=== PATIENT | male | born 1935 | race Caucasian/White ===

== ENCOUNTER → 2016-03-14 | Outpatient (CLI) | payer MEDICARE, BC | LOC: PCVCCLINIC 11:21 | PROVIDERS: ATTEND Internal Medicine Cardiovascular Disease | DX: E78.5 Hyperlipidemia, unspecified (principal); E78.00 Pure hypercholesterolemia, unspecified; I25.10 Atherosclerotic heart disease of native coronary artery without angina pectoris; I71.4 Abdominal aortic aneurysm, without rupture; J44.9 Chronic obstructive pulmonary disease, unspecified; I10 Essential (primary) hypertension; I73.9 Peripheral vascular disease, unspecified; R09.89 Other specified symptoms and signs involving the circulatory and respiratory systems; Z72.0 Tobacco use | CPT/HCPCS: 93005; 93880; G0463 ==

== ENCOUNTER → 2016-09-27 | Outpatient (CLI) | payer MEDICARE, BC | END | disposition home or self-care (01) | LOC: PCVCCLINIC 13:45 | PROVIDERS: ATTEND Internal Medicine Cardiovascular Disease | DX: I25.10 Atherosclerotic heart disease of native coronary artery without angina pectoris (principal); I45.10 Unspecified right bundle-branch block; I51.7 Cardiomegaly; I71.4 Abdominal aortic aneurysm, without rupture; I10 Essential (primary) hypertension; I73.9 Peripheral vascular disease, unspecified; E78.00 Pure hypercholesterolemia, unspecified; J44.9 Chronic obstructive pulmonary disease, unspecified; E78.5 Hyperlipidemia, unspecified; Z72.0 Tobacco use; Z90.49 Acquired absence of other specified parts of digestive tract; Z79.82 Long term (current) use of aspirin | CPT/HCPCS: 80061; 93005; G0463 ==

== ENCOUNTER → 2016-12-03 | Outpatient (CLI) | payer MEDICARE, BC ==
[~2016-12-03] MED LIST: REGADENOSON 0.4 MG/5 ML DISP.SYRIN. IV ONE
--- NOTE | 2016-12-03 10:31 | PCVCIMAG ---
EXAM: AORTOILIAC DUPLEX INDICATION: Abdominal aortic aneurysm. Previous stent graft repair. FINDINGS: AORTA: Suprarenal aorta measures maximum diameter of 3.2 cm. Prior stent graft repair of abdominal aortic aneurysm appears intact without obvious endoleak. Residual aneurysm sac measures maximum diameter of 3.0 x 3.9 cm compared to 3.5 x 3.8 cm on prior study June 2015. No significant aortic stenosis. RIGHT COMMON ILIAC ARTERY: Maximum diameter is 1.5 cm. No significant stenosis. RIGHT EXTERNAL ILIAC ARTERY: No significant stenosis. LEFT COMMON ILIAC ARTERY: Maximum diameter is 1.5 cm. No significant stenosis. LEFT EXTERNAL ILIAC ARTERY: No significant stenosis. IMPRESSION: Intact stent graft repair of abdominal aortic aneurysm by ultrasound criteria. Residual aneurysm sac has remained stable in size since prior study. The suprarenal abdominal aorta measures larger today. Further evaluation with CT angiography of the abdomen and pelvis will be obtained. LOC:[id number]
--- NOTE | 2016-12-03 10:36 | PCVCIMAG ---
EXAM: BILATERAL LOWER EXTREMITY ARTERIAL DUPLEX INDICATION: Peripheral Arterial Disease. Leg pain. FINDINGS: Right Leg: Satisfactory arterial waveforms in the common femoral profunda femoral artery. Satisfactory arterial waveforms in the superficial femoral artery and popliteal artery without significant stenosis. The anterior tibial artery shows occlusion distally. The peroneal artery and posterior tibial artery are patent. Left Leg: Satisfactory arterial waveforms in the common femoral and profunda femoral artery. Segmental occlusion distal superficial femoral artery. Blunted arterial waveforms in the popliteal artery due to the more proximal occlusion. Occlusion of the mid/distal anterior tibial artery. The peroneal artery and posterior tibial artery are patent. IMPRESSION: No right superficial femoral artery or popliteal artery stenosis. Occlusion of the distal right anterior tibial artery. Interval development of segmental occlusion distal left superficial femoral artery. Unchanged occlusion of the mid/distal anterior tibial artery. LOC:[id number]
--- NOTE | 2016-12-04 16:57 | PCVCIMAG ---
APPROVED REPORT Exam: Nuclear Stress Test Indication: CAD Patient Location: Out-Patient Stress Nurse: Mary Jimenes RN, Gisela Pond RN [place] Tech:LORENE Casillas Ht: 5 ft 11 in Wt: 160 lbs BSA: 1.92 m2 HR: 69 bpm BP: 174/83 mmHg BMI: 22.3 Rhythm: SR, RBBB Medical History Medical History: HTN, Hyperlipidemia, PVD,Age, Current Smoker Medications: Amlodipine, ASA, Atorvastatin, HCTZ, Pantoprazole, Irbesartan Allergies: No known drug allergies Previous Cardiac Procedures: PCI Pretest Chest Pain Characteristics: No chest pain Exercise History: Sedentary NM EXAM: Myocardial Perfusion REST/STRESS Imaging Protocol: Rest Tc-99m/Stress Tc-99m 1 day Resting Data Rest SPECT myocardial perfusion imaging was performed in supine position 45 minutes following the intravenous injection of 8.9 mCi of Tc-99m Sestamibi. Time of rest injection: 0900 Date: 12/03/2016 Administration Route: IV Administration Site: Right Arm Pharmacologic Stress Pharmacologic stress test was performed by injecting Regadenoson 0.4 mg IV push followed by the intravenous injection of 27.1 mCi of Tc-99m Sestamibi. Time of stress injection: 1000 Date: 12/03/2016 Administration Route: IV Administration Site: Right Arm Gated Stress SPECT was performed 45 minutes after stress injection. The images were gated to evaluate regional wall motion and calculate left ventricular ejection fraction. Study Quality Study: Good Artifact: Mild Diaphragmatic artifact Study Data Post stress, the left ventricular ejection was 60%.. SSS: 6 SRS: 5 SDS: 1 TID = 0.93. Perfusion No evidence of stress induced ischemia or prior myocardial infarction. Wall Motion Normal left ventricular size and function with no regional wall motion abnormalities. Nuclear Conclusion No evidence of stress induced ischemia or prior myocardial infarction. Normal left ventricular size and function with no regional wall motion abnormalities. Post stress, the left ventricular ejection was 60%.. No prior study available for comparison. Interpreted by: Trevor Pastrana MD Electronically Approved: 12/03/2016 14:11:50 Stress Test Details Stress Test: Pharmacologic stress testing performed using 0.4 mg of regadenoson per 5 mL given IV over 10 seconds. Reason for pharmacologic stress test: physical limitation. HR Resting HR: 69 bpmMax Heart Rate (APMHR): 141 bpm Max HR Achieved: 93 bpmTarget HR (85% APMHR): 119 bpm % of APMHR: 65 Recovery HR: 91 bpm BP Resting BP: 174/83 mmHg Max BP: 133/63 mmHg ECG Resting ECG: Sinus Rhythm, RBBB Stress ECG: Sinus Tachycardia, RBBB Recovery ECG: Sinus Rhythm, RBBB Clinical Reason for Termination: Completed protocol Stress Symptoms: Abdominal discomfort Exercise duration: 0 min 55 sec Exercise capacity: 1.0 METs Symptoms resolved during recovery. Stress ECG Conclusion ECG: Non-ischemic <Conclusion> ECG: Non-ischemic
== END | disposition home or self-care (01) ==
LOC: PCVCIMAG 07:47
PROVIDERS: ATTEND Internal Medicine Cardiovascular Disease
DX: I77.1 Stricture of artery (principal); I73.9 Peripheral vascular disease, unspecified; I25.10 Atherosclerotic heart disease of native coronary artery without angina pectoris; I10 Essential (primary) hypertension; E78.5 Hyperlipidemia, unspecified; K52.9 Noninfective gastroenteritis and colitis, unspecified; F17.200 Nicotine dependence, unspecified, uncomplicated; I45.10 Unspecified right bundle-branch block; I71.4 Abdominal aortic aneurysm, without rupture; Z95.1 Presence of aortocoronary bypass graft; Z79.899 Other long term (current) drug therapy; Z95.828 Presence of other vascular implants and grafts
CPT/HCPCS: 78452; 93017; 93925; 93978; A9500; J2785

== ENCOUNTER → 2016-12-11 | Outpatient (CLI) | payer MEDICARE, BC | END | disposition home or self-care (01) | LOC: PCVCCLINIC 14:56 | PROVIDERS: ATTEND Nuclear Medicine Nuclear Cardiology | DX: Z01.812 Encounter for preprocedural laboratory examination (principal); I73.9 Peripheral vascular disease, unspecified; I25.10 Atherosclerotic heart disease of native coronary artery without angina pectoris; I77.9 Disorder of arteries and arterioles, unspecified; I10 Essential (primary) hypertension; I71.4 Abdominal aortic aneurysm, without rupture; E78.00 Pure hypercholesterolemia, unspecified; J44.9 Chronic obstructive pulmonary disease, unspecified; F17.200 Nicotine dependence, unspecified, uncomplicated; Z90.49 Acquired absence of other specified parts of digestive tract; Z79.82 Long term (current) use of aspirin; Z79.899 Other long term (current) drug therapy | CPT/HCPCS: 36415; G0463 ==

== ENCOUNTER → 2016-12-12 | Outpatient (CLI) | payer MEDICARE, BC ==
[~2016-12-12] MED LIST changes: +CLOPIDOGREL BISULFATE 75 MG TABLET ONE; +DIAZEPAM 10 MG TABLET. ONE; +EPTIFIBATIDE BOLUS 2,000 MCG/ML 10ML VIAL. IV ONE; +HEPARIN SODIUM 5,000 UNIT/ML VIAL for PCVC. ONE; +IODIXANOL 270 MG/ML 100 ML VIAL. ONE; +IV NORMAL SALINE 500ML BAG 500 ML ONE; +LIDOCAINE 1% Multi-Dose 20 ML VIAL. ONE; +LIDOCAINE 1%/EPI 1:100,000 20 ML VIAL. ONE; +MIDAZOLAM HCL/PF 2 MG/2 ML VIAL. ONE; +NITROGLYCERIN PREMIX 250 ML IV ONE; -REGADENOSON 0.4 MG/5 ML DISP.SYRIN. IV ONE; +fentaNYL PF VIAL 100 MCG/2 ML VIAL ONE; +hydrALAZINE 20 MG/ML VIAL. ONE
--- NOTE | 2016-12-12 11:03 | PCVCINTER ---
EXAM: 1. LEFT LOWER EXTREMITY RUNOFF ANGIOGRAM 2. LEFT SUPERFICIAL FEMORAL ARTERY ATHERECTOMY AND STENT PLACEMENT. 3. SECONDARY THROMBECTOMY LEFT SUPERFICIAL FEMORAL ARTERY. 4. DRUG COATED BALLOON ANGIOPLASTY LEFT SUPERFICIAL FEMORAL ARTERY. INDICATION: Peripheral arterial disease. Coronary artery disease. Lifestyle limiting claudication Hypertension. Renal atherosclerosis. PROCEDURE: Procedure and risks of angiography intervention is appropriate including limb loss stroke and were discussed with the patient's family and consent obtained. The patient's left groin was prepped abnormal sterile fashion. IV conscious sedation was used to procedure with appropriate monitoring from 8:30 AM through 10:15 AM. Ultrasound was used to interrogate the left groin and showed the left common femoral artery to be patent. A permanent spot film was obtained. Under ultrasound guidance access into the left common femoral artery was obtained in an antegrade fashion and a 6 [place] sheath was placed. Through this left leg runoff angiography was performed. Patient was given 4000 units of heparin. A 6 [place] crossover sheath was placed via the left groin to the level of the right common femoral artery. Atherectomy of the left superficial femoral artery was performed with 2.0 mm Spruce Median[employer]JDLab laser atherectomy catheter in the standard fashion. Following atherectomy small areas of thrombus were observed and because of this secondary thrombectomy throughout the left superficial femoral artery was carried out with mechanical suction thrombectomy catheter in the standard fashion. Minimal debris was removed. Stent placement across the areas of high-grade stenosis in the left superficial femoral artery was carried out with a 8 x 150, 6 x 120, an 8 x 20 Smart control stents with subsequent dilatation to 6.0 mm. Following this drug coated balloon angioplasty of the left superficial femoral artery was carried out with a 6 x 1 20, 6 x 1 20, 6 x 40, and 6 x 40 [employer]etics Stell[employer] ELECTRONICS TECHNICIAN catheters. Follow-up angiogram was performed. Catheters and wires removed. Sheath was removed and hemostasis obtained using the FISH device. No immediate complications. FINDINGS: Left leg: Visualized portion of the common femoral artery is patent. 80% stenosis at the origin the profunda femoral artery. 80% stenosis proximal superficial femoral artery with segmental occlusion in the distal superficial femoral artery. The anterior tibial artery is occluded throughout. The peroneal artery and posterior tibial arteries are patent. Left superficial femoral artery: Following procedure as above vessel is widely patent. IMPRESSION: Areas of stenosis and complete occlusion in the left superficial femoral artery as detailed above was treated as noted with good patency restored. impression follow up LOC:[id number]
== END | disposition home or self-care (01) ==
LOC: PCVCINTER 07:14
PROVIDERS: ATTEND Nuclear Medicine Nuclear Cardiology
DX: I70.212 Atherosclerosis of native arteries of extremities with intermittent claudication, left leg (principal); I25.10 Atherosclerotic heart disease of native coronary artery without angina pectoris; I70.1 Atherosclerosis of renal artery
CPT/HCPCS: 36245; 37186; 37227; 75710; 76937; 99152; 99153; C1725; C1757; C1760; C1769; C1876; C1885; C1887; C1894; C2628; J0360; J0690; J1327; J1644; J2250; J3010; J3490; J7040; Q9966

== ENCOUNTER → 2017-10-15 | Outpatient (CLI) | payer MEDICARE, BC ==
--- NOTE | 2017-10-15 14:06 | PCVCIMAG ---
EXAM: BILATERAL CAROTID DUPLEX INDICATION: Carotid Occlusive Disease. FINDINGS: Doppler Measurements (centimeters per second): RIGHT: Peak CCA-63, Peak ECA-63, Diastolic ICA-29, Peak ICA-69, ICA/CCA Ratio-1.1. LEFT: Peak CCA-73, Peak ECA-70, Diastolic ICA-18, Peak ICA-56, ICA/CCA Ratio-0.8. RIGHT CAROTID: The carotid bulb has moderate plaque. The proximal internal carotid artery shows <40% stenosis. The common carotid artery shows no significant stenosis. The external carotid artery shows no significant stenosis. LEFT CAROTID: The carotid bulb has mild plaque. The proximal internal carotid artery shows <40% stenosis. The common carotid artery shows no significant stenosis. The external carotid artery shows no significant stenosis. Antegrade flow in both vertebral arteries. IMPRESSION: <40% stenosis of the right internal carotid artery with moderate plaque. <40% stenosis of the left internal carotid artery with mild plaque. LOC:[place] [id number]
--- NOTE | 2017-10-15 14:13 | PCVCIMAG ---
EXAM: NONINVASIVE ARTERIAL EXAMINATION OF BOTH LOWER EXTREMITIES INCLUDING PRE AND POST EXERCISE PRESSURE MEASUREMENTS AND DOPPLER WAVEFORMS INDICATION: Peripheral Arterial Disease. Leg pain. FINDINGS: Right Brachial: 154 mm Hg. Right Dorsalis Pedis: 151 mm Hg. Right Posterior Tibial: 141 mm Hg. Right BRENDA = 0.97. Left Brachial: 156 mm Hg. Left Dorsalis Pedis: 145 mm Hg. Left Posterior Tibial: 154 mm Hg. Left BRENDA = 0.99. Post Exercise: Left Brachial 180 mm Hg. Right Dorsalis Pedis: 92 mm Hg. Left Posterior Tibial: 161 mm Hg. Right BRENDA = 0.51. Left BRENDA = 0.89. IMPRESSION: No resting ischemia in the right lower extremity. Moderate exercise induced ischemia in the right lower extremity. No resting ischemia in the left lower extremity. No exercise induced ischemia in the left lower extremity. LOC:[id number]
--- NOTE | 2017-10-15 14:51 | PCVCIMAG ---
EXAM: BILATERAL LOWER EXTREMITY ARTERIAL DUPLEX INDICATION: Peripheral Arterial Disease. Leg pain. FINDINGS: Right Leg: Common femoral and profunda femoral arteries are patent. Increased systolic velocity 407 cm/s mid [place] superficial femoral artery consistent with 80% stenosis. The popliteal artery is patent. The peroneal artery and posterior tibial arteries are patent. There is occlusion throughout the anterior tibial artery. Left Leg: Common femoral and profunda femoral arteries are patent. Superficial femoral artery and popliteal arteries are patent. Previous stent throughout the superficial femoral artery is patent. The peroneal artery and posterior tibial arteries are patent. Anterior tibial artery is occluded throughout. IMPRESSION: Interval development of 80% stenosis mid [place] right superficial femoral artery. Previous left superficial femoral artery stent maintaining satisfactory patency. Unchanged occlusion of the right and left anterior tibial arteries. LOC:[id number]
== END | disposition home or self-care (01) ==
LOC: PCVCIMAG 13:57
PROVIDERS: ATTEND Nuclear Medicine Nuclear Cardiology
DX: I25.10 Atherosclerotic heart disease of native coronary artery without angina pectoris (principal); I10 Essential (primary) hypertension; I71.4 Abdominal aortic aneurysm, without rupture; I70.1 Atherosclerosis of renal artery; I77.9 Disorder of arteries and arterioles, unspecified; E78.00 Pure hypercholesterolemia, unspecified; I73.9 Peripheral vascular disease, unspecified; F17.210 Nicotine dependence, cigarettes, uncomplicated; I65.23 Occlusion and stenosis of bilateral carotid arteries; Z79.82 Long term (current) use of aspirin
CPT/HCPCS: 80061; 93005; 93880; 93923; 93925; G0463; 93924

== ENCOUNTER → 2017-10-16 | Outpatient (CLI) | payer MEDICARE, BC ==
[~2017-10-16] MED LIST changes: +HEPARIN for ARTERIAL LINE 1,500 ML ONE; +IOHEXOL 350 MG/ML 100 ML VIAL. ONE; +IV NORMAL SALINE 1000ML BAG 1,000 ML ONE; -LIDOCAINE 1% Multi-Dose 20 ML VIAL. ONE; -NITROGLYCERIN PREMIX 250 ML IV ONE; +WATER FOR INJECTION,STERILE 20 ML VIAL. IJ ONE; +ceFAZolin SODIUM 1 GM VIAL ONE
--- NOTE | 2017-10-16 15:43 | PCVCINTER ---
EXAM: 1. AORTOGRAM AND BILATERAL LOWER EXTREMITY RUNOFF ANGIOGRAM 2. BILATERAL RENAL ANGIOGRAPHY 3. RIGHT RENAL ARTERY STENT PLACEMENT. 4. LEFT RENAL ARTERY ANGIOPLASTY. 5. LEFT COMMON ILIAC ARTERY STENT PLACEMENT. 6. LEFT EXTERNAL ILIAC ARTERY STENT PLACEMENT. INDICATION: Peripheral arterial disease. Coronary artery disease. Lower extremity pain. Hypertension. Renal atherosclerosis. No prior catheter based angiographic study is available. A full diagnostic angiogram study is performed today and the decision to intervene is based on this diagnostic study. PROCEDURE: Procedure and risks of angiography intervention is appropriate including limb loss stroke and were discussed with the patient's family and consent obtained. The patient's left groin was prepped in the normal sterile fashion. IV conscious sedation was used throughout procedure with appropriate monitoring from 11:45 AM through 1:15 PM. Ultrasound was used to interrogate the left groin and showed the left common femoral artery to be patent. A permanent spot film was obtained. Under ultrasound guidance access into the left common femoral artery was obtained and a 5 Kazakh sheath was placed. Through this a 5 Kazakh flush catheter was placed into the abdominal aorta at the level of the renal arteries and AP aortogram was performed. Catheter was positioned at the aortic bifurcation and both oblique views of the pelvis were obtained. Catheter was positioned into the left external iliac artery and left leg runoff angiography was performed. Catheter was exchanged for a visceral catheter was placed into the right renal arteries and right renal angiograms obtained. Catheter was placed into the the left renal arteries and left renal angiograms were obtained. Catheter was advanced to the level of the right common iliac artery and right leg runoff angiography was obtained. Patient was given 4500 units of heparin. Stent placement across the areas of high-grade stenosis in the right renal artery was carried out with a 7 x 15 [place] blue stent with subsequent dilatation to 8.0 mm. Following this balloon angioplasty of the left renal artery was carried out with a 5 x 2 LIQUOR RECTIFIER catheter. Stent placement across the areas of high-grade stenosis in the left common iliac was carried out with a 10 x 40 and 10 x 20 Smart control stents with subsequent dilatation to 10.0 mm. Stent placement across the areas of high-grade stenosis in the left external iliac was carried out with a 8 x 80 Smart control stent with subsequent dilatation to 8.0 mm. Follow-up angiogram was performed. Catheters and wires removed. Sheath was removed and hemostasis obtained using the FISH device. No immediate complications. FINDINGS: Aortogram: There is one right and one left renal artery. Previous stent graft repair of abdominal aortic aneurysm with aneurysm stent graft. There is good flow throughout the stent graft. The proximal margin stent graft is approximately 1.5 cm below the lowest renal artery. No obvious endoleak is seen. Pelvis: The right iliac limb of the stent graft is patent. Moderate stenosis distal margin of the left iliac limb of the stent graft in the left common iliac artery. Multiple areas of high-grade stenosis in the [place] left external iliac artery. The left common femoral and profunda femoral arteries are patent. Mild stenosis distal right external iliac artery. Right common femoral and profunda femoral arteries are patent. Right renal artery: 95% stenosis proximal right renal artery. No branch vessel stenosis. Left renal artery: Previous stent proximal renal artery shows subtotal occlusion. Previous stent mid/distal renal artery showing moderate stenosis. Right le% stenosis mid superficial femoral artery. Distal superficial femoral artery and popliteal artery are patent. Anterior tibial artery is occluded. The peroneal artery and posterior tibial arteries are patent. Left leg: Previous long segment superficial femoral artery stent maintaining good patency throughout. Popliteal artery is patent. The anterior tibial artery is occluded. The peroneal artery and posterior tibial arteries are patent. Right renal artery: Following procedure as above vessel shows good patency with good position of the stent. Left renal artery: Following procedure as above the proximal stent show satisfactory patency restored. The more distal stent shows mild residual stenosis although less severe. There is a moderate stenosis in the hilum which remains. Left common iliac artery: Following procedure as above vessel shows good patency. Left external iliac artery: Bone procedure as above vessel shows good patency. IMPRESSION: Areas of significant stenosis left common and external iliac arteries were treated as above good patency restored. Critical 95% stenosis right renal artery was treated with stent placements with good patency restored. Subtotal occlusion of previous left renal artery stent was treated with angioplasty with improved patency seen. Patient return next week for intervention to the high-grade right SFA stenosis via an antegrade approach. LOC:[id number]
--- NOTE | 2017-10-21 18:47 | PCVCINTER ---
APPROVED REPORT Study performed: 10/16/2017 12:29:00 Patient Details Patient Status: Out-Patient Room #: 3 The patient is a 81 year-old Male Event Personnel Angel Park MD, Farooq Zamora RT(R)(), Nolan Azevedo RT(R),, Ivan Cueva RN Risk Factors Arterial HypertensionDysplipidemia (Type: 1), Cerebrovascular DiseasePeripheral Vascular Disease, Chronic Lung DiseaseHypercholesterolemia, Renal Failure, Last Creatanine 1.9Tobacco History (Current/Recent(w/in 1 year)) Previous Procedures/Diagnoses Previous Vascular Surgery, CAD, PVD, Chronic lung disease->COPD, Hypertension Procedure Narrative A 6 sheath was inserted into the right femoral artery. Coronary angiography was performed using coronary diagnostic catheters. The right coronary system was accessed and visualized with a JR4 catheter. The left coronary system was accessed and visualized with a JL4 catheter. The left ventricle was accessed and visualized with a Straight Pigtail catheter. Left ventriculogram was performed in TORREZ projection. Closure device was deployed with a 6 Fr FISH. Hemostasis was obtained with manual pressure following sheath removal without any complications. The patient tolerated the procedure well and there were no complications associated with the procedure. There was no hematoma. Hemodynamics The aortic pressure is 130/75 mmHg with a mean of 100 mmHg. The left ventricular pressure is 140/0 mmHg with a mean of 7 mmHg. Conclusion #1 normal left ventricular size and systolic function EF 55-60% #2 short left main giving rise to an LAD and circumflex. #3 LAD is mildly calcified with mild disease there is a 50-60% in-stent restenosis in the proximal LAD and at the bifurcation of a diagonal branch there is an eccentric 70-75% stenosis mildly diffuse distal disease #4 proximal circumflex nondominant moderate size has a long eccentric lesion of 80-90% #5 dominant right coronary artery with an eccentric calcified plaque proximal 60-70% range with preserved distal vessel giving rise to PDA and DAVID dominant vessel Recommendations and plan: Would consider intervention to the proximal OM this is high-grade and a long lesion moderate distribution. Consider FFR of LAD diagonal stenosis. (Bifurcation)
== END | disposition home or self-care (01) ==
LOC: PCVCINTER 13:36
PROVIDERS: ATTEND Nuclear Medicine Nuclear Cardiology
DX: I70.1 Atherosclerosis of renal artery (principal); I70.213 Atherosclerosis of native arteries of extremities with intermittent claudication, bilateral legs; I25.10 Atherosclerotic heart disease of native coronary artery without angina pectoris; I10 Essential (primary) hypertension; J44.9 Chronic obstructive pulmonary disease, unspecified; J98.4 Other disorders of lung; I71.4 Abdominal aortic aneurysm, without rupture; Z79.82 Long term (current) use of aspirin; F17.210 Nicotine dependence, cigarettes, uncomplicated; I65.23 Occlusion and stenosis of bilateral carotid arteries; E78.00 Pure hypercholesterolemia, unspecified
CPT/HCPCS: 36252; 37221; 37223; 37236; 37246; 75716; 76937; 93454; 99152; 99153; C1725; C1751; C1760; C1769; C1876; C1885; C1887; C1894; J0360; J0690; J1327; J1644; J2250; J3010; J3490; J7030; J7040; Q9967

== ENCOUNTER → 2018-01-21 | Outpatient (CLI) | payer MEDICARE, BC ==
--- NOTE | 2018-01-21 08:46 | PCVCIMAG ---
EXAM: AORTOILIAC DUPLEX INDICATION: Abdominal aortic aneurysm with previous stent graft repair. FINDINGS: AORTA: Suprarenal aorta measures maximum diameter of 3.7 cm. Prior stent graft repair of abdominal aortic aneurysm appears intact without obvious endoleak. Residual aneurysm sac measures maximum diameter of 3.4 x 4.6 cm compared to 3.9 cm on prior study December 2016. No significant aortic stenosis. RIGHT COMMON ILIAC ARTERY: Maximum diameter is 1.6 cm. No significant stenosis. RIGHT EXTERNAL ILIAC ARTERY: No significant stenosis. LEFT COMMON ILIAC ARTERY: Maximum diameter is 1.5 cm. No significant stenosis. LEFT EXTERNAL ILIAC ARTERY: No significant stenosis. IMPRESSION: Intact stent graft repair of abdominal aortic aneurysm by ultrasound criteria. Residual aneurysm sac may have increased in size since prior study. Further evaluation with CTA of the abdomen and pelvis will be obtained. LOC:[id number]
--- NOTE | 2018-01-21 08:54 | PCVCIMAG ---
EXAM: BILATERAL LOWER EXTREMITY ARTERIAL DUPLEX INDICATION: Peripheral Arterial Disease. Leg pain. FINDINGS: Right Leg: Common femoral profunda femoral arteries are patent. Previous stent proximal/mid superficial femoral artery maintaining good patency. Distal to the stent in the distal [place] superficial femoral artery are increased systolic velocities of 408 cm/s consistent with 90% stenosis which has developed since previous study. Popliteal artery is patent. The radial artery and posterior tibial arteries are patent. Mid/distal anterior tibial artery is occluded. Left Leg: Common femoral and profunda femoral arteries are patent. Superficial femoral artery and popliteal artery are patent. Unchanged occlusion of the mid/distal anterior tibial artery. The peroneal artery and posterior tibial arteries are patent. IMPRESSION: Previous stent proximal/mid right superficial femoral artery remains patent. Interval development of 90% stenosis distal [place] right superficial femoral artery. Previous left superficial femoral artery stent remains patent. Unchanged occlusion of the mid/distal right and left anterior tibial arteries. LOC:[place] [id number]
== END | disposition home or self-care (01) ==
LOC: PCVCIMAG 07:35
PROVIDERS: ATTEND Nuclear Medicine Nuclear Cardiology
DX: I73.9 Peripheral vascular disease, unspecified (principal); I71.4 Abdominal aortic aneurysm, without rupture; E78.00 Pure hypercholesterolemia, unspecified; I25.10 Atherosclerotic heart disease of native coronary artery without angina pectoris; I77.9 Disorder of arteries and arterioles, unspecified; I70.1 Atherosclerosis of renal artery; I12.9 Hypertensive chronic kidney disease with stage 1 through stage 4 chronic kidney disease, or unspecified chronic kidney disease; N18.9 Chronic kidney disease, unspecified; J44.9 Chronic obstructive pulmonary disease, unspecified; F17.210 Nicotine dependence, cigarettes, uncomplicated; Z79.82 Long term (current) use of aspirin
CPT/HCPCS: 36415; 93925; 93978; G0463

== ENCOUNTER → 2018-01-28 | Outpatient (CLI) | payer MEDICARE, BC ==
[~2018-01-28] MED LIST changes: -CLOPIDOGREL BISULFATE 75 MG TABLET ONE; -HEPARIN SODIUM 5,000 UNIT/ML VIAL for PCVC. ONE; -HEPARIN for ARTERIAL LINE 1,500 ML ONE; +HEPARIN for SUB-Q USE 5,000 UNIT/ML VIAL. SQ ONE; +HYDROcodone/APAP 5/325MG 1 TAB TABLET ONE; -IOHEXOL 350 MG/ML 100 ML VIAL. ONE; -IV NORMAL SALINE 500ML BAG 500 ML ONE; +PROTAMINE 50 MG/5 ML VIAL. IV ONE; -WATER FOR INJECTION,STERILE 20 ML VIAL. IJ ONE; -ceFAZolin SODIUM 1 GM VIAL ONE
--- NOTE | 2018-01-28 12:00 | PCVCINTER ---
EXAM: 1. RIGHT LOWER EXTREMITY RUNOFF ANGIOGRAM 2. RIGHT SUPERFICIAL FEMORAL ARTERY ATHERECTOMY AND STENT PLACEMENT. 3. SECONDARY THROMBECTOMY RIGHT SUPERFICIAL FEMORAL ARTERY. 4. DRUG COATED BALLOON ANGIOPLASTY RIGHT SUPERFICIAL FEMORAL ARTERY. INDICATION: Peripheral arterial disease. Coronary artery disease. Right calf claudication. Hypertension. Renal atherosclerosis. No prior catheter based angiographic study is available. A full diagnostic angiogram study is performed today and the decision to intervene is based on this diagnostic study. PROCEDURE: Procedure and risks of angiography intervention is appropriate including limb loss stroke and were discussed with the patient's family and consent obtained. The patient's right groin was prepped in the normal sterile fashion. IV conscious sedation was used throughout procedure with appropriate monitoring from 90. Ultrasound was used to interrogate the right groin and showed the right common femoral artery to be patent. A permanent spot film was obtained. Under ultrasound guidance access into the right common femoral artery was obtained and a 5 [place] sheath was placed in an antegrade fashion. Through this a right leg runoff angiography was obtained. Patient was given 4500 units of heparin. A 6 [place] crossover sheath was placed and atherectomy of the right superficial femoral artery was performed with 2.0 mm [employer] laser atherectomy catheter in the standard fashion. Following atherectomy small areas of thrombus were observed and because of this secondary thrombectomy throughout the right superficial femoral artery was carried out with mechanical suction thrombectomy catheter in the standard fashion. Minimal debris was removed. Stent placement across the areas of high-grade stenosis in the right superficial femoral artery was carried out with a 8 x 80 Smart control stent with subsequent dilatation to 6.0 mm. Following this drug coated balloon angioplasty of the right superficial femoral artery was carried out with a 6 x 120 [employer] Bharati Jarek FIRESTOPPER TECHNICIAN catheter. Follow-up angiogram was performed. Catheters and wires removed. Sheath was removed and hemostasis obtained using the FISH device. No immediate complications. FINDINGS: Right leg: Moderate plaque throughout the common femoral artery causing mild stenosis. Profunda femoral artery is patent. Proximal [place] superficial femoral artery shows moderate plaquing without flow-limiting stenosis. Previous stent mid superficial femoral artery maintaining good patency. Interval development of 90% stenosis mid/distal [place] superficial femoral artery. The popliteal artery is patent. Unchanged occlusion of the anterior tibial artery. The peroneal artery and posterior tibial arteries remain patent. Right superficial femoral artery: Following procedure as above vessel shows good patency. IMPRESSION: Interval development of 90% stenosis mid/distal [place] right superficial femoral artery was treated as above with good patency restored. Previous stent mid right superficial femoral artery maintaining good patency. LOC:[id number]
== END | disposition home or self-care (01) ==
LOC: PCVCINTER 09:41
PROVIDERS: ATTEND Nuclear Medicine Nuclear Cardiology
DX: I70.211 Atherosclerosis of native arteries of extremities with intermittent claudication, right leg (principal); I70.1 Atherosclerosis of renal artery; I25.10 Atherosclerotic heart disease of native coronary artery without angina pectoris; J44.9 Chronic obstructive pulmonary disease, unspecified; F17.210 Nicotine dependence, cigarettes, uncomplicated; E78.00 Pure hypercholesterolemia, unspecified; I12.9 Hypertensive chronic kidney disease with stage 1 through stage 4 chronic kidney disease, or unspecified chronic kidney disease; N18.9 Chronic kidney disease, unspecified; Z79.82 Long term (current) use of aspirin; Z79.899 Other long term (current) drug therapy; Z98.890 Other specified postprocedural states
CPT/HCPCS: 37186; 37227; 75710; 76937; C1725; C1757; C1769; C1876; C1885; C1894; J0360; J0690; J1644; J2250; J3010; J3490; J7030; Q9967; 99152; 99153; J1327

== ENCOUNTER → 2018-05-21 | Outpatient (CLI) | payer OTHER, BC ==
--- NOTE | 2018-05-21 14:27 | PCVCIMAG ---
EXAM: BILATERAL LOWER EXTREMITY ARTERIAL DUPLEX INDICATION: Peripheral Arterial Disease. Leg pain. FINDINGS: Right Leg: Common femoral and profunda femoral arteries are patent. Superficial femoral artery and popliteal artery showing satisfactory patency. Previous superficial femoral artery stent maintaining satisfactory patency. Occlusion throughout the anterior tibial artery. The peroneal and posterior tibial arteries are patent. Left Leg: Common femoral and profunda femoral arteries are patent. Superficial femoral artery and popliteal artery showing satisfactory patency. Previous superficial femoral artery stent maintaining satisfactory patency. Occlusion throughout the anterior tibial artery. The peroneal and posterior tibial arteries are patent. IMPRESSION: Occlusion right anterior tibial artery. Otherwise no flow limiting stenosis in the right lower extremity. Occlusion left anterior tibial artery. Otherwise no flow limiting stenosis in the left lower extremity. Previous right and left superficial femoral artery stents are maintaining satisfactory patency. LOC:[id number]
== END | disposition home or self-care (01) ==
LOC: PCVCIMAG 13:49
PROVIDERS: ATTEND Nuclear Medicine Nuclear Cardiology
DX: I73.9 Peripheral vascular disease, unspecified (principal); I70.1 Atherosclerosis of renal artery; I77.9 Disorder of arteries and arterioles, unspecified; I25.10 Atherosclerotic heart disease of native coronary artery without angina pectoris; I71.4 Abdominal aortic aneurysm, without rupture; J44.9 Chronic obstructive pulmonary disease, unspecified; E78.00 Pure hypercholesterolemia, unspecified; I12.9 Hypertensive chronic kidney disease with stage 1 through stage 4 chronic kidney disease, or unspecified chronic kidney disease; N18.9 Chronic kidney disease, unspecified; E78.5 Hyperlipidemia, unspecified; F17.210 Nicotine dependence, cigarettes, uncomplicated; Z79.82 Long term (current) use of aspirin
CPT/HCPCS: 93925; G0463